=== PATIENT | female | born 1970 | race African-American/Black ===

== ENCOUNTER 2018-05-25 12:53 | Inpatient (IN) | payer OTHER ==
[2018-05-25 15:09] VITALS: BMI 21.9
--- NOTE | 2018-05-25 20:24 | HP ---
Admission [facility] Chief Complaint: SEEKING REHAB FOR HEROIN/BENZO DEPENDENCE Allergies/Adverse Reactions: Allergies Allergy/AdvReac Type Severity Reaction Status Date / Time No Known Allergies Allergy Verified 05/25/18 15:34 History of Present Illness: 47 Y.O. FEMALE WITH HX/O OPIATE AND BENZO DEPENDENCE ADMITTED TO REHAB. CLIENT URINE IS NEG FOR OPIATES BUT IS POSITIVE FOR MTD. DENIES USE STATES WAS MEDICATED AT [facility] 2 DAYS AGO AND THEN DC FOR INSURANCE REASONS AND NEG OPIATE SCREEN. CLIENT WAS BROUGHT IN BY ONE OF THE OUTREACH DRIVERS. SHE IS KNOWN TO OTHER INPATIENT TXMENTS REPORTS LAST BEING 2 YEARS. DENIES ANY SIGNIFICANT PERIOD OF CLEAN TIME. , SHE PRESENTLY DENIES ANY WITHDRAWAL SX'S, HX/O SEIZURES , AVH, DRUG OVERDOSE, PAST PRESENT HX/O SI/HI. PMHX: DENIES PSYCH: DENIES Exam Limitations: No Limitations - Ebola screening Have you traveled outside of the country in the last 21 days: No Have you had contact with anyone from an Ebola affected area: No Have you been sick,other than usual withdrawal symptoms: No Do you have a fever: No - Review of Systems Constitutional: Unintentional Wgt. Loss EENT: reports: Dental Problems (MISSING TEETH) Respiratory: reports: No Symptoms reported Cardiac: reports: No Symptoms Reported GI: reports: No Symptoms Reported : reports: No Symptoms Reported Musculoskeletal: reports: No Symptoms Reported Integumentary: reports: No Symptoms Reported, Rash (ECZEMA) Neuro: reports: No Symptoms reported Endocrine: reports: No Symptoms Reported Hematology: reports: No Symptoms Reported Psychiatric: reports: No Sypmtoms Reported Other Systems: Reviewed and Negative Patient History - Patient Medical History Hx Anemia: No Hx Asthma: No Hx Chronic Obstructive Pulmonary Disease (COPD): No Hx Cancer: No Hx Cardiac Disorders: No Hx Congestive Heart Failure: No Hx Hypertension: No Hx Hypercholesterolemia: No Hx Pacemaker: No HX Cerebrovascular Accident: No Hx Seizures: No Hx Dementia: No Hx Diabetes: No Hx Gastrointestinal Disorders: No Hx Liver Disease: No Hx Genitourinary Disorders: No Hx Sexually Transmitted Disorders: No Hx Renal Disease (ESRD): No Hx Thyroid Disease: No Hx Human Immunodeficiency Virus (HIV): No Hx Hepatitis C: No Hx Depression: No Hx Suicide Attempt: No Hx Bipolar Disorder: No Hx Schizophrenia: No Other Medical History: ECZEMA - Patient Surgical History Past Surgical History: No - PPD History Previous Implant?: Yes Documented Results: Negative w/o proof Implanted On Prior R Admission?: No PPD to be Administered?: Yes - Reproductive History Patient is a Female of Child Bearing Age (11 -55 yrs old): Yes Last Menstrual Period: 04/20/18 LMP comment: IRREG Patient : No (NEG [facility] [place]) - Smoking Cessation Smoking history: Current every day smoker Have you smoked in the past 12 months: Yes Aproximately how many cigarettes per day: 10 Cigars Per Day: 0 Hx Chewing Tobacco Use: No Initiated information on smoking cessation: Yes 'Breaking Loose' booklet given: 05/25/18 - Substance & Tx. History Hx Alcohol Use: Yes Hx Substance Use: Yes Substance Use Type: Alcohol, Cocaine, Heroin Hx Substance Use Treatment: Yes ([facility]) - Substances Abused Heroin Route: Inhalation Frequency: Daily Amount used: 2 bundles=20 bags Age of first use: 17 Date of Last Use: 05/22/18 Cocaine Route: Smoking Frequency: Daily Amount used: (15) 10 dollar bags Age of first use: 17 Date of Last Use: 05/22/18 Alcohol Route: Oral Frequency: Daily Amount used: 1 pint zuly Age of first use: 20 Date of Last Use: 05/22/18 Family Disease History - Family Disease History Family History: Denies Admission Physical Exam [facility] - Vital Signs Vital Signs: Vital Signs - 24 hr 05/25/18 15:02 Temperature 97.4 F L Pulse Rate 68 Respiratory 20 Rate Blood Pressure 122/76 - Physical General Appearance: Yes: Disheveled, Anxious HEENTM: Yes: EOMI, Normocephalic, Normal Voice, BONNIE, Pharynx Normal, Other ( MISSING TEETH) Respiratory: Yes: Chest Non-Tender, Lungs Clear, Normal Breath Sounds, No Respiratory Distress, No Accessory Muscle Use Neck: Yes: No masses,lesions,Nodules, Supple, Trachea in good position Breast: Yes: Breast Exam Deferred Cardiology: Yes: Regular Rhythm, Regular Rate, S1, S2 Abdominal: Yes: Normal Bowel Sounds, Non Tender, Soft Genitourinary: Yes: Other (DENIES C/O) Back: Yes: Normal Inspection Musculoskeletal: Yes: full range of Motion, Gait Steady Extremities: Yes: Normal Capillary Refill, Normal Range of Motion, Non-Tender, Other (DIRTY NAILS) Neurological: Yes: Fully Oriented, Alert, Motor Strength 5/5 Integumentary: Yes: Dry, Warm, Rash (ECZEMA NOTED TO BLE) Lymphatic: Yes: Within Normal Limits - Diagnostic (1) Uncomplicated alcohol dependence Current Visit: Yes Status: Chronic (2) Uncomplicated opioid dependence Current Visit: Yes Status: Chronic (3) Cocaine abuse, uncomplicated Current Visit: Yes Status: Chronic (4) Sedative, hypnotic or anxiolytic abuse, uncomplicated Current Visit: Yes Status: Chronic (5) Nicotine dependence Current Visit: Yes Status: Chronic Qualifiers: Nicotine product type: cigarettes Substance use status: uncomplicated Qualified Code(s): F17.210 - Nicotine dependence, cigarettes, uncomplicated (6) Eczema Current Visit: Yes Status: Chronic Qualifiers: Eczema type: unspecified Qualified Code(s): L30.9 - Dermatitis, unspecified (7) Substance induced mood disorder Current Visit: Yes Status: Suspected Cleared for Admission S - Detox or Rehab Detox Regimen/Protocol: Not Applicable Claeared for Rehab Admission: Yes [facility] Breath Alcohol Content Breath Alcohol Content: 0 Urine Pregancy Test - Result Urine Test Results: Negative- NO Line Present Urine Drug Screen - Results Drug Screen Negative: No Urine Drug Screen Results: LIN-Cocaine, BZO-Benzodiazepines, MTD-Methadone Inpatient Rehab Admission - Initial Determination Are CD services needed?: Yes Free of communicable disease: Yes Not in need of hospitalization: Yes - Rehab Admission Criteria Previous failed treatment: Yes Poor recovery environment: Yes Comorbidities: Yes Lacks judgement: Yes Patient is meeting Inpatient Rehab admission criteria:: Yes
[2018-05-25] MEDS ORDERED: guaiFENesin/D-METHORPHAN HB 10 ML UNIT-DOSE CUPS PO PRN (20:35)
[2018-05-25] MEDS ORDERED: MAGNESIUM HYDROX 2400MG/30ML ORAL SUSPENSION 30 ML CUP PO PRN (20:35)
[2018-05-25] MEDS ORDERED: MAGNESIUM CITRATE 300 ML BOTTLE PO PRN (20:35)
[2018-05-25] MEDS ORDERED: MENTHOL/PHENOL 1 EACH UD MM PRN (20:35)
[2018-05-25] MEDS ORDERED: P-EPHED 60MG/TRIPROLIDI 2.5MG TABLET PO PRN (20:35)
[2018-05-25] MEDS ORDERED: MAG HYDROX/AL HYDROX/SIMETH 30 ML UNIT-DOSE CUP PO PRN (20:35)
[2018-05-25] MEDS ORDERED: LOPERAMIDE HCL 2 MG CAPSULE PO PRN (20:35)
[2018-05-25] MEDS ORDERED: TUBERCULIN PPD 5 TU/0.1ML VIAL ID ONE (22:13)
[2018-05-25] MEDS: THIAMINE HCL 100 MG TABLET (FP) PO SCH (22:27)
[2018-05-25 23:29] LABS: URINE APPEARANCE SLCLOUDY; URINE BILIRUBIN NEGATIVE (<2.0 mg/dL); URINE COLOR YELLOW; URINE GLUCOSE (UA) NEGATIVE (NEGATIVE); URINE KETONE NEGATIVE (NEGATIVE); URINE LEUK ESTERASE NEGATIVE (NEGATIVE); URINE NITRITE NEGATIVE (NEGATIVE); URINE PROTEIN NEGATIVE (NEGATIVE); URINE UROBILINOGEN NEGATIVE mg/dL (0.2-1.0)
[2018-05-26] MEDS: NICOTINE 14 MG/24 HOURS TOPICAL PATCH TD SCH (10:48)
[2018-05-26] MEDS: PRENATAL VITAMINS W/ FOLIC ACID TABLET (FP) PO SCH (10:48)
[2018-05-26 11:23] LABS: HEMATOCRIT 36.2 % (32.4-45.2); HEMOGLOBIN 11.8 GM/dL (10.7-15.3); MCH 28.3 pg (25.7-33.7); MCHC 32.7 g/dl (32.0-36.0); MEAN CELL VOLUME 86.3 fl (80-96); MEAN PLT VOLUME 7.8 fl (7.5-11.1); PLATELET COUNT 368 K/MM3 (134-434); RBC 4.19 M/mm3 (3.60-5.2); RDW 13.7 % (11.6-15.6); WHITE BLOOD COUNT 8.8 K/mm3 (4.0-10.0)
[2018-05-26 11:41] LABS: ALBUMIN 2.9 g/dl (3.4-5.0); ALK PHOS 43 U/L (45-117); ANION GAP 8 MMOL/L (8-16); BILIRUBIN,TOTAL 0.2 mg/dL (0.2-1.0); BLOOD UREA NITROGEN 10 mg/dL (7-18); CALCIUM 8.7 mg/dL (8.5-10.1); CHLORIDE 109 mmol/L (98-107); CO2 26 mmol/L (21-32); CREATININE 0.6 mg/dL (0.55-1.02); GLUCOSE,RANDOM 88 mg/dL (74-106); POTASSIUM 4.5 mmol/L (3.5-5.1); SGOT/AST 11 U/L (15-37); SGPT/ALT 12 U/L (12-78); SODIUM 143 mmol/L (136-145); TOT PROT 5.6 g/dl (6.4-8.2)
[2018-05-26] MEDS: THIAMINE HCL 100 MG TABLET (FP) PO SCH (22:30)
[2018-05-27] MEDS: NICOTINE 14 MG/24 HOURS TOPICAL PATCH TD SCH (09:23)
[2018-05-27] MEDS: hydrOXYzine PAMOATE 50 MG CAPSULE (FP) PO PRN (09:24)
[2018-05-27] MEDS: PRENATAL VITAMINS W/ FOLIC ACID TABLET (FP) PO SCH (09:24)
[2018-05-27] MEDS: THIAMINE HCL 100 MG TABLET (FP) PO SCH (21:38)
[2018-05-28] MEDS: NICOTINE 14 MG/24 HOURS TOPICAL PATCH TD SCH (09:10)
[2018-05-28] MEDS: PRENATAL VITAMINS W/ FOLIC ACID TABLET (FP) PO SCH (09:10)
--- NOTE | 2018-05-28 14:22 | EKG ---
Test Reason : Blood Pressure : / mmHG Vent. Rate : 068 BPM Atrial Rate : 068 BPM P-R Int : 134 ms QRS Dur : 076 ms QT Int : 370 ms P-R-T Axes : 057 003 048 degrees QTc Int : 393 ms NORMAL SINUS RHYTHM NORMAL ECG NO PREVIOUS ECGS AVAILABLE Confirmed by SALAZAR BERRY MD ([id number]) on 05/28/2018 2:21:46 PM Referred By: Trini Lucia Confirmed By:SALAZAR BERRY MD
[2018-05-28] MEDS: THIAMINE HCL 100 MG TABLET (FP) PO SCH (21:41)
[2018-05-29] MEDS: NICOTINE 14 MG/24 HOURS TOPICAL PATCH TD SCH (10:25)
[2018-05-29] MEDS: PRENATAL VITAMINS W/ FOLIC ACID TABLET (FP) PO SCH (10:25)
--- NOTE | 2018-05-29 19:40 | HP ---
Psychiatrist Admission - Data Date of interview: 05/29/18 Admission source: Self-referred after discharge from [facility] program. Identifying data: First admission to [facility] at [address] for this 47 y/o AA female,discharged from [facility] on 05/25/18, seeking rehabilitation treatment for heroin,cocaine,alcohol and xanax dependence.Patient is single,a mother of two,homeless,unemployed and deprived of income. Medical History: Patient endorses good general health.Noted eczema. Psychiatric History: Patient denies history of psychiatric hospitalizations.She reports a prior history of psychiatric OPD care at the [facility].Reportedly diagnosed with Bipolar Disorder and managed with seroquel, zoloft and haldol.Ms Putnam is not able to remember the last time she took these medications or the date of last visit to the OPD clinic in [place].Vague historian.Does mention that she used to be on 200 mg of seroquel at bedtime.Patient denies history of suicide attempts. Physical/Sexual Abuse/Trauma History: Patient denies history of abuse. Additional Comment: Smoking history: Current every day smoker. Have you smoked in the past 12 months: Yes. Aproximately how many cigarettes per day: 10. Cigars Per Day: 0. Hx Chewing Tobacco Use: No. Initiated information on smoking cessation: Yes. 'Breaking Loose' booklet given: 05/25/18. - Substance & Tx. History. Hx Alcohol Use: Yes. Hx Substance Use: Yes. Substance Use Type : Alcohol, Cocaine, Heroin. Hx Substance Use Treatment: Yes ([facility]). - Substances Abused. Heroin. Route: Inhalation. Frequency: Daily. Amount used: 2 bundles=20 bags. Age of first use: 17. Date of Last Use: 05/22/18. * * Cocaine. Route: Smoking. Frequency: Daily. Amount used: (15) 10 dollar bags. Age of first use: 17. Date of Last Use: 05/22/18. Alcohol. Route: Oral. Frequency: Daily. Amount used: 1 pint zuly. Age of first use: 20. Date of Last Use: 05/22/18. Urine Drug Screen Results: LIN-Cocaine, BZO- Benzodiazepines, MTD-Methadone.Noted on admission. Vital Signs: Vital Signs - 24 hr 05/29/18 05/29/1805/29/18 00:30 03:30 07:01 Temperature 98.3 F Pulse Rate 80 Respiratory 16 16 16 Rate Blood Pressure 94/60 Allergies/Adverse Reactions: Allergies Allergy/AdvReac Type Severity Reaction Status Date / Time No Known Allergies Allergy Verified 05/25/18 15:34 - Substance Abuse/Tx History Hx Alcohol Use: Yes Hx Substance Use: Yes (smokes 1/2 pack of cigarettes daily) Substance Use Type: Alcohol, Cocaine, Heroin, Tranquilizers Mental Status Exam - Mental Status Exam Alert and Oriented to: Time, Place, Person Cognitive Function: Good Patient Appearance: Unkempt, Disheveled (thin habitus,short stature) Mood: Hopeful, Euthymic Affect: Appropriate, Normal Range Patient Behavior: Appropriate, Cooperative Speech Pattern: Clear, Appropriate Voice Loudness: Normal Thought Process: Goal Oriented Thought Disorder: Not Present Hallucinations: Denies Suicidal Ideation: Denies Homicidal Ideation: Denies Insight/Judgement: Poor Sleep: Poorly, Difficulty falling asleep Appetite: Fair, Weight loss Muscle strength/Tone: Normal Gait/Station: Normal Psychiatric Findings - Problem List ([place] 1, 2,3) (1) Uncomplicated alcohol dependence Current Visit: Yes Status: Acute (2) Cocaine abuse, uncomplicated Current Visit: Yes Status: Acute (3) Sedative, hypnotic or anxiolytic abuse, uncomplicated Current Visit: Yes Status: Acute (4) Uncomplicated opioid dependence Current Visit: Yes Status: Acute (5) Nicotine dependence Current Visit: Yes Status: Acute Qualifiers: Nicotine product type: cigarettes Substance use status: uncomplicated Qualified Code(s): F17.210 - Nicotine dependence, cigarettes, uncomplicated (6) Substance induced mood disorder Current Visit: Yes Status: Acute (7) Insomnia Current Visit: Yes Status: Acute - Initial Treatment Plan Initial Treatment Plan: Psychoeducation.Sleep hygiene.Group therapy.Medications reconciliation : no data.No information about pharmacy affiliation.Suggest contact with [facility] (mental health department) for information about medications.Noted low blood pressure at time of this examination.Serosaba held.Observation.Insomnia is addressed with melatonin 5 mg po hs prn.Patient is informed of side effects/benefits.Agrees to this careplan.
[2018-05-29] MEDS: THIAMINE HCL 100 MG TABLET (FP) PO SCH (22:50)
[2018-05-30] MEDS: PRENATAL VITAMINS W/ FOLIC ACID TABLET (FP) PO SCH (09:09)
[2018-05-30] MEDS: NICOTINE 14 MG/24 HOURS TOPICAL PATCH TD SCH (09:09)
[2018-05-30] MEDS: THIAMINE HCL 100 MG TABLET (FP) PO SCH (21:25)
[2018-05-31] MEDS: NICOTINE 14 MG/24 HOURS TOPICAL PATCH TD SCH (09:48)
[2018-05-31] MEDS: PRENATAL VITAMINS W/ FOLIC ACID TABLET (FP) PO SCH (09:48)
[2018-05-31] MEDS: THIAMINE HCL 100 MG TABLET (FP) PO SCH (21:33)
[2018-06-01] MEDS: PRENATAL VITAMINS W/ FOLIC ACID TABLET (FP) PO SCH (10:03)
[2018-06-01] MEDS: NICOTINE 14 MG/24 HOURS TOPICAL PATCH TD SCH (10:06)
[2018-06-01] MEDS: NICOTINE POLACRILEX 2 MG GUM BC PRN (10:07)
[2018-06-01] MEDS: THIAMINE HCL 100 MG TABLET (FP) PO SCH (21:37)
[2018-06-02] MEDS: PRENATAL VITAMINS W/ FOLIC ACID TABLET (FP) PO SCH (09:51)
[2018-06-02] MEDS: NICOTINE 14 MG/24 HOURS TOPICAL PATCH TD SCH (09:51)
[2018-06-02] MEDS: NICOTINE POLACRILEX 2 MG GUM BC PRN (09:51)
--- NOTE | 2018-06-02 13:15 | PN ---
[facility] Progress Note Note: Vital Signs Temperature 97.1 F L 06/02/18 07:21 Pulse Rate 80 06/02/18 07:21 Respiratory Rate 16 06/02/18 07:21 Blood Pressure 101/65 06/02/18 07:21 O2 Sat by Pulse Oximetry (%) Laboratory Last Values WBC 8.8 K/mm3 (4.0-10.0) 05/26/18 09:30 RBC 4.19 M/mm3 (3.60-5.2) 05/26/18 09:30 Hgb 11.8 GM/dL (10.7-15.3) 05/26/18 09:30 Hct 36.2 % (32.4-45.2) 05/26/18 09:30 MCV 86.3 fl (80-96) 05/26/18 09:30 MCH 28.3 pg (25.7-33.7) 05/26/18 09:30 MCHC 32.7 g/dl (32.0-36.0) 05/26/18 09:30 RDW 13.7 % (11.6-15.6) 05/26/18 09:30 Plt Count 368 K/MM3 (134-434) 05/26/18 09:30 MPV 7.8 fl (7.5-11.1) 05/26/18 09:30 Sodium 143 mmol/L (136-145) 05/26/18 09:30 Potassium 4.5 mmol/L (3.5-5.1) 05/26/18 09:30 Chloride 109 mmol/L (98-107) H 05/26/18 09:30 Carbon Dioxide 26 mmol/L (21-32) 05/26/18 09:30 Anion Gap 8 MMOL/L (8-16) 05/26/18 09:30 BUN 10 mg/dL (7-18) 05/26/18 09:30 Creatinine 0.6 mg/dL (0.55-1.02) 05/26/18 09:30 Creat Clearance w eGFR > 60 (>60) 05/26/18 09:30 Random Glucose 88 mg/dL (74-106) 05/26/18 09:30 Calcium 8.7 mg/dL (8.5-10.1) 05/26/18 09:30 Total Bilirubin 0.2 mg/dL (0.2-1.0) 05/26/18 09:30 AST 11 U/L (15-37) L 05/26/18 09:30 ALT 12 U/L (12-78) 05/26/18 09:30 Alkaline Phosphatase 43 U/L (45-117) L 05/26/18 09:30 Total Protein 5.6 g/dl (6.4-8.2) L 05/26/18 09:30 Albumin 2.9 g/dl (3.4-5.0) L 05/26/18 09:30 Urine Color Yellow 05/25/18 21:10 Urine Appearance Slcloudy 05/25/18 21:10 Urine pH 6.0 (5.0-8.0) 05/25/18 21:10 Ur Specific [place] 1.021 (1.001-1.035) 05/25/18 21:10 Urine Protein Negative (NEGATIVE) 05/25/18 21:10 Urine Glucose (UA) Negative (NEGATIVE) 05/25/18 21:10 Urine Ketones Negative (NEGATIVE) 05/25/18 21:10 Urine Blood Negative (NEGATIVE) 05/25/18 21:10 Urine Nitrite Negative (NEGATIVE) 05/25/18 21:10 Urine Bilirubin Negative (<2.0 mg/dL) 05/25/18 21:10 Urine Urobilinogen Negative mg/dL (0.2-1.0) 05/25/18 21:10 Ur Leukocyte Esterase Negative (NEGATIVE) 05/25/18 21:10 RPR Titer Nonreactive (NONREACTIVE) 05/26/18 09:30 Hep C Ab Diagnostic 0.1 s/co ratio (0.0-0.9) 05/26/18 09:30 Hepatitis C RNA No Result Required. 05/26/18 09:30 HCV RNA PCR w/Genot Rflx No Result Required. 05/26/18 09:30 Liver Fibrosis Interp (.) 05/26/18 09:30 Labs reviewed continue to monitor
[2018-06-02] MEDS: THIAMINE HCL 100 MG TABLET (FP) PO SCH (21:20)
[2018-06-03] MEDS: PRENATAL VITAMINS W/ FOLIC ACID TABLET (FP) PO SCH (09:34)
[2018-06-03] MEDS: NICOTINE 14 MG/24 HOURS TOPICAL PATCH TD SCH (09:34)
[2018-06-03] MEDS: NICOTINE POLACRILEX 2 MG GUM BC PRN (09:35)
[2018-06-03] MEDS: ACETAMINOPHEN 325 MG TABLET (FP) PO PRN (19:20)
[2018-06-03] MEDS: THIAMINE HCL 100 MG TABLET (FP) PO SCH (21:28)
[2018-06-04] MEDS: COLLOIDAL OATMEAL 1 BAR EACH TP PRN (07:19)
[2018-06-04] MEDS: PRENATAL VITAMINS W/ FOLIC ACID TABLET (FP) PO SCH (09:35)
[2018-06-04] MEDS: NICOTINE 14 MG/24 HOURS TOPICAL PATCH TD SCH (09:35)
[2018-06-04] MEDS: THIAMINE HCL 100 MG TABLET (FP) PO SCH (21:11)
[2018-06-04] MEDS: MELATONIN 5 MG TABLETS PO PRN (21:11)
[2018-06-05] MEDS: hydrOXYzine PAMOATE 50 MG CAPSULE (FP) PO PRN (07:10)
[2018-06-05] MEDS: PRENATAL VITAMINS W/ FOLIC ACID TABLET (FP) PO SCH (10:13)
[2018-06-05] MEDS: NICOTINE 14 MG/24 HOURS TOPICAL PATCH TD SCH (10:13)
[2018-06-05] MEDS: THIAMINE HCL 100 MG TABLET (FP) PO SCH (21:17)
[2018-06-05] MEDS: MELATONIN 5 MG TABLETS PO PRN (21:17)
[2018-06-06] MEDS: NICOTINE 14 MG/24 HOURS TOPICAL PATCH TD SCH (09:48)
[2018-06-06] MEDS: PRENATAL VITAMINS W/ FOLIC ACID TABLET (FP) PO SCH (09:48)
[2018-06-06] MEDS: MELATONIN 5 MG TABLETS PO PRN (21:40)
[2018-06-06] MEDS: THIAMINE HCL 100 MG TABLET (FP) PO SCH (21:40)
[2018-06-07] MEDS: NICOTINE 14 MG/24 HOURS TOPICAL PATCH TD SCH (09:57)
[2018-06-07] MEDS: PRENATAL VITAMINS W/ FOLIC ACID TABLET (FP) PO SCH (09:58)
[2018-06-07] MEDS: THIAMINE HCL 100 MG TABLET (FP) PO SCH (21:28)
[2018-06-07] MEDS: MELATONIN 5 MG TABLETS PO PRN (21:28)
[2018-06-08] MEDS: COLLOIDAL OATMEAL 1 BAR EACH TP PRN (06:34)
[2018-06-08] MEDS: PRENATAL VITAMINS W/ FOLIC ACID TABLET (FP) PO SCH (10:01)
[2018-06-08] MEDS: NICOTINE 14 MG/24 HOURS TOPICAL PATCH TD SCH (10:01)
[2018-06-08] MEDS: THIAMINE HCL 100 MG TABLET (FP) PO SCH (21:51)
[2018-06-08] MEDS: MELATONIN 5 MG TABLETS PO PRN (21:51)
[2018-06-09] MEDS: NICOTINE 14 MG/24 HOURS TOPICAL PATCH TD SCH (09:41)
[2018-06-09] MEDS: PRENATAL VITAMINS W/ FOLIC ACID TABLET (FP) PO SCH (09:41)
[2018-06-09] MEDS: THIAMINE HCL 100 MG TABLET (FP) PO SCH (21:27)
[2018-06-09] MEDS: MELATONIN 5 MG TABLETS PO PRN (21:27)
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
[2018-06-10] MEDS ORDERED: BACITRACIN 15 GM TUBE TOPICAL OINTMENT TP SCH (10:00)
[2018-06-10] MEDS: PRENATAL VITAMINS W/ FOLIC ACID TABLET (FP) PO SCH (10:06)
[2018-06-10] MEDS: NICOTINE 14 MG/24 HOURS TOPICAL PATCH TD SCH (10:06)
[2018-06-10] MEDS: THIAMINE HCL 100 MG TABLET (FP) PO SCH (21:44)
[2018-06-10] MEDS: MELATONIN 5 MG TABLETS PO PRN (21:44)
[2018-06-10] MEDS: BACITRACIN 0.9 GM PACKET TP SCH (22:50)
[2018-06-11] MEDS: PRENATAL VITAMINS W/ FOLIC ACID TABLET (FP) PO SCH (10:00)
[2018-06-11] MEDS: NICOTINE 14 MG/24 HOURS TOPICAL PATCH TD SCH (10:00)
[2018-06-11] MEDS: BACITRACIN 0.9 GM PACKET TP SCH ×2 (10:00→21:24)
[2018-06-11] MEDS: THIAMINE HCL 100 MG TABLET (FP) PO SCH (21:24)
[2018-06-11] MEDS: MELATONIN 5 MG TABLETS PO PRN (21:24)
[2018-06-12] MEDS: NICOTINE 14 MG/24 HOURS TOPICAL PATCH TD SCH (09:34)
[2018-06-12] MEDS: PRENATAL VITAMINS W/ FOLIC ACID TABLET (FP) PO SCH (09:35)
[2018-06-12] MEDS: NICOTINE POLACRILEX 2 MG GUM BC PRN (09:36)
[2018-06-12] MEDS: COLLOIDAL OATMEAL 1 BAR EACH TP PRN (17:10)
[2018-06-12] MEDS: MELATONIN 5 MG TABLETS PO PRN (21:30)
[2018-06-12] MEDS: THIAMINE HCL 100 MG TABLET (FP) PO SCH (21:30)
[2018-06-13] MEDS: NICOTINE 14 MG/24 HOURS TOPICAL PATCH TD SCH (09:49)
[2018-06-13] MEDS: PRENATAL VITAMINS W/ FOLIC ACID TABLET (FP) PO SCH (09:49)
[2018-06-13] MEDS: NICOTINE POLACRILEX 2 MG GUM BC PRN (09:50)
[2018-06-13] MEDS: THIAMINE HCL 100 MG TABLET (FP) PO SCH (21:06)
[2018-06-14] MEDS: NICOTINE 14 MG/24 HOURS TOPICAL PATCH TD SCH (09:49)
[2018-06-14] MEDS: PRENATAL VITAMINS W/ FOLIC ACID TABLET (FP) PO SCH (09:50)
[2018-06-14] MEDS: NICOTINE POLACRILEX 2 MG GUM BC PRN (09:51)
[2018-06-14] MEDS: THIAMINE HCL 100 MG TABLET (FP) PO SCH (21:13)
[2018-06-15] MEDS: NICOTINE 14 MG/24 HOURS TOPICAL PATCH TD SCH (09:45)
[2018-06-15] MEDS: PRENATAL VITAMINS W/ FOLIC ACID TABLET (FP) PO SCH (09:46)
[2018-06-15] MEDS: THIAMINE HCL 100 MG TABLET (FP) PO SCH (21:26)
[2018-06-16] MEDS: NICOTINE 14 MG/24 HOURS TOPICAL PATCH TD SCH (09:41)
[2018-06-16] MEDS: PRENATAL VITAMINS W/ FOLIC ACID TABLET (FP) PO SCH (09:42)
[2018-06-16] MEDS: THIAMINE HCL 100 MG TABLET (FP) PO SCH (21:03)
[2018-06-17] MEDS: NICOTINE 14 MG/24 HOURS TOPICAL PATCH TD SCH (10:07)
[2018-06-17] MEDS: PRENATAL VITAMINS W/ FOLIC ACID TABLET (FP) PO SCH (10:10)
[2018-06-17] MEDS ORDERED: PT OWN MED DRAWER 7, Y5N ONE (20:23)
[2018-06-17] MEDS: THIAMINE HCL 100 MG TABLET (FP) PO SCH (21:00)
[2018-06-18] MEDS: NICOTINE 14 MG/24 HOURS TOPICAL PATCH TD SCH (09:45)
[2018-06-18] MEDS: NICOTINE POLACRILEX 2 MG GUM BC PRN (09:47)
[2018-06-18] MEDS: PRENATAL VITAMINS W/ FOLIC ACID TABLET (FP) PO SCH (09:47)
--- NOTE | 2018-06-18 13:54 | PN ---
S Progress Note Note: Vital Signs Temperature 97.7 F 06/18/18 06:41 Pulse Rate 88 06/18/18 06:41 Respiratory Rate 16 06/18/18 06:41 Blood Pressure 106/70 06/18/18 06:41 O2 Sat by Pulse Oximetry (%) Patient reports hx of urinary stress incontinence primary when she laughs and sneezes. Patient report she was treated was this before and was taking medication but does not recall the name of the medication. Patient denies hematuria, dysuria, hesitancy, or discharge. Patient currenly medically stable. Patient to follow up with her product handler upon discharge.
[2018-06-18] MEDS: MELATONIN 5 MG TABLETS PO PRN (21:17)
[2018-06-18] MEDS: THIAMINE HCL 100 MG TABLET (FP) PO SCH (21:17)
[2018-06-19] MEDS: NICOTINE 14 MG/24 HOURS TOPICAL PATCH TD SCH (09:52)
[2018-06-19] MEDS: PRENATAL VITAMINS W/ FOLIC ACID TABLET (FP) PO SCH (09:52)
[2018-06-19] MEDS: NICOTINE POLACRILEX 2 MG GUM BC PRN (09:53)
[2018-06-19] MEDS: THIAMINE HCL 100 MG TABLET (FP) PO SCH (21:06)
[2018-06-20] MEDS: COLLOIDAL OATMEAL 1 BAR EACH TP PRN (07:00)
[2018-06-20] MEDS: PRENATAL VITAMINS W/ FOLIC ACID TABLET (FP) PO SCH (09:48)
[2018-06-20] MEDS: NICOTINE 14 MG/24 HOURS TOPICAL PATCH TD SCH (09:48)
[2018-06-20] MEDS: IBUPROFEN 400 MG TABLET (FP) PO PRN (09:49)
[2018-06-20] MEDS: NICOTINE POLACRILEX 2 MG GUM BC PRN (09:50)
[2018-06-20] MEDS: THIAMINE HCL 100 MG TABLET (FP) PO SCH (21:28)
[2018-06-21] MEDS: NICOTINE 14 MG/24 HOURS TOPICAL PATCH TD SCH (09:31)
[2018-06-21] MEDS: PRENATAL VITAMINS W/ FOLIC ACID TABLET (FP) PO SCH (09:31)
[2018-06-21] MEDS: NICOTINE POLACRILEX 2 MG GUM BC PRN (09:33)
[2018-06-21] MEDS: IBUPROFEN 400 MG TABLET (FP) PO PRN (11:15)
[2018-06-21] MEDS: ACETAMINOPHEN 325 MG TABLET (FP) PO PRN (13:43)
[2018-06-21] MEDS: THIAMINE HCL 100 MG TABLET (FP) PO SCH (21:09)
[2018-06-22 07:09] VITALS: BP 108/73; PULSE 84; TEMP 98.2
--- NOTE | 2018-06-22 08:48 | PN ---
Psychiatric Progress Note Vital Signs: Vital Signs Period Temp Pulse Resp BP Sys/Roy Pulse Ox Last 24 Hr 98.2 F 84 18-18 108/73 Date of Session: 06/22/18 Chief Complaint:: Discharge visit Current Medications: Active Medications Generic Name Dose Route Start Last Admin Trade Name Freq PRN Reason Stop Dose Admin Acetaminophen 650 mg 05/25/18 20:35 06/21/18 13:43 Tylenol - PO 650 mg Q4H PRN Administration FEVER Al Hydroxide/Mg Hydroxide 30 ml 05/25/18 20:35 Mylanta Oral Suspension - PO Q6H PRN DYSPEPSIA Colloidal Oatmeal 1 applic 06/02/18 12:24 06/20/18 07:00 Aveeno Soap - TP 1 applic DAILY PRN Administration HYGEINE Eucalyptus/Menthol/Phenol/Sorbitol 1 each 05/25/18 20:35 Cepastat Lozenge - MM Q4H PRN SORE THROAT Guaifenesin 10 ml 05/25/18 20:35 Robitussin Dm - PO Q6H PRN COUGH Hydroxyzine Pamoate 50 mg 05/25/18 20:35 06/05/18 07:10 Vistaril - PO 50 mg Q4H PRN Administration AGITATION Ibuprofen 400 mg 05/25/18 20:35 06/21/18 11:15 Motrin - PO 400 mg Q6H PRN Administration Pain level 4-6 Loperamide HCl 4 mg 05/25/18 20:35 Imodium - PO Q6H PRN DIARRHEA Magnesium Citrate 300 ml 05/25/18 20:35 Citroma - PO Q48H PRN CONSTIPATION Magnesium Hydroxide 30 ml 05/25/18 20:35 Milk Of Magnesia - PO DAILY PRN CONSTIPATION Melatonin 5 mg 05/25/18 22:00 06/18/18 21:17 Melatonin PO 5 mg HS PRN Administration INSOMNIA Nicotine 14 mg 05/26/18 10:00 06/21/18 09:31 Nicoderm Patch - TD 14 mg DAILY DAHLIA Administration Nicotine Polacrilex 2 mg 05/25/18 20:35 06/21/18 09:33 Nicorette Gum - BC 2 mg Q2H PRN Administration NICOTINE REPLACEMENT RX Multivit/Folic Acid/Iron 1 tab 05/26/18 10:00 06/21/18 09:31 Vitamins (Sjr) - PO 1 tab DAILY DAHLIA Administration Pseudoephedrine/Triprolidine 1 combo 05/25/18 20:35 Actifed - PO TID PRN NASAL CONGESTION Thiamine HCl 100 mg 05/25/18 22:00 06/21/18 21:09 Vitamin B1 - PO 100 mg HS DAHLIA Administration Current Side Effect: No Lab tests ordered: No Lab tests reviewed: Yes Provider note:: [facility] Total face to face time:: 30
== END 2018-06-22 08:46 | disposition home or self-care (01) | DRG 772 ==
LOC: YASAS 12:53 → Y3E 19:07
PROVIDERS: ADMIT Psychiatry & Neurology Psychiatry; ATTEND Psychiatry & Neurology Psychiatry
PROC: HZ42ZZZ Group Counseling for Substance Abuse Treatment, Cognitive-Behavioral (ICD-10-PCS; principal; 2018-05-25)
DX: F11.20 Opioid dependence, uncomplicated (principal); F10.20 Alcohol dependence, uncomplicated; F13.10 Sedative, hypnotic or anxiolytic abuse, uncomplicated; F14.10 Cocaine abuse, uncomplicated; F17.210 Nicotine dependence, cigarettes, uncomplicated; F19.24 Other psychoactive substance dependence with psychoactive substance-induced mood disorder; G47.00 Insomnia, unspecified; L30.9 Dermatitis, unspecified; S10.91XA Abrasion of unspecified part of neck, initial encounter; Y04.2XXA Assault by strike against or bumped into by another person, initial encounter; Y93.89 Activity, other specified; Y92.238 Other place in hospital as the place of occurrence of the external cause; Y99.8 Other external cause status
CPT/HCPCS: 36415; 80053; 81003; 85027; 86593; 86803; 93005; 93010